=== PATIENT | female | born 1960 | race Caucasian/White ===

== ENCOUNTER 2019-12-17 08:39 | Day surgery (SDC) | payer OTHER, SELFPAY ==
[2019-12-15 13:51] VITALS: BMI 50.0
[2019-12-17] VITALS (14 sets, daily range): BP systolic 80–175; BP diastolic 38–73; PULSE 60–77; RESP 14–17; TEMP 35.6–36.7; O2SAT 94–100; BMI 50.0
--- NOTE | 2019-12-17 06:00 | DI.RAD.S_ITS ---
PROCEDURE: XR KNEE RT 1TO2V INDICATIONS: post op TECHNIQUE: 2 view(s) of the knee acquired. COMPARISON: [facility], [place], XR KNEE ARTHRITIC SERIES RT, 03/17/2019, 10:51. FINDINGS: Bones: Patient is status post knee joint arthroplasty. Hardware components are in expected positions. Visualized bony structures are intact. Soft tissues: Overlying postoperative changes are noted. Multiple surgical skin claudia are seen overlying the anterior margin of the midline knee. No unexpected radiopaque foreign bodies are evident. Areas of soft tissue edema and air are present. IMPRESSION: Expected postoperative changes related to a right total knee arthroplasty. Dictated by: Bipin Olivares M.D. on 12/17/2019 at 13:14 Approved by: Bipin Olivares M.D. on 12/17/2019 at 13:14
[2019-12-17] MEDS: PREGABALIN 75 MG CAPSULE PO (10:02)
[2019-12-17] MEDS: LACTATED RINGERS 1,000 ML 42 ML IV ×2 (10:15→12:53)
[2019-12-17] MEDS: MELOXICAM 7.5 MG TABLET 15 MG PO (10:17)
--- NOTE | 2019-12-17 10:35 | PM.PREOP ---
Pre-operative Note Interval Note History & Physical reviewed/Exam performed by Physician: Yes Changes to H&P: No
--- NOTE | 2019-12-17 10:36 | P.OP_ITS ---
Operative Date/Time/Diagnoses Date of procedure: 12/17/19 Time of procedure: 13:20 Pre-op diagnosis: Severe right knee osteoarthritis with significant loss of motion Post-op diagnosis: same Procedure & Clinicians Procedure: Right total knee arthroplasty Same procedure as scheduled: Yes Indications: The patient presents today for total knee arthroplasty after failure of conservative treatment. The nature of the procedure including the risks and benefits, alternatives, postoperative course and expected outcome were discussed and all questions answered. The patient does understand that it may be difficult for her to get full range of motion back considering her preoperative range of motion. Consent was obtained. Operative site confirmed and marked. Surgeon: Dallas Machuca Defense Analyst: Luis A Stubbs Anesthesia Type: Spinal and Local Operative Notes Findings: The patient had severe preoperative motion loss. Once under anesthesia of the knee moved just from about 25-80 degrees. A +2 cut was made on the distal femur initially. Approximately 11 mm was cut from the less affected lateral side of the tibia. The knee was still tight in both flexion extension and another 2 mm was removed. The knee balanced well once all the osteophytes were removed and routine medial releases performed. I did leave the knee with approximately 2-3 mm of laxity medially and laterally. I was co ncerned she would have difficulty regaining full motion of the knee was left too tight. She easily went into full extension without hyperextension. The knee flexed to at least 120? which was primarily limited by the soft tissue. The patella had severe concave wear. Once cut there is about 13 mm of remaining patella. There were some cysts within the bone that were debrided as well. A small patella was placed as far medial as possible to ensure good tracking. Patellar tracking was excellent with the trial and final components. Closure Type: primary Specimen(s): none sent Prosthetic devices, grafts, tissues, transplants, or devices: Dan and Nephew Laura BCS: 6 femoral component, 3 tibial component, 9 mm BCS polyethylene tray and 29 x 7.5 mm round patella Applied: implant(s) Estimated Blood Loss (mL): 10 Blood products transfused: none Tourniquet time (min): 75 Procedure in detail: The patient was taken to the operative suite and placed un edvin spinal anesthesia. The patient was given prophylactic antibiotics prior to surgery. The patient was also given tranexamic acid, 1 g, just prior to surgery for postoperative hemostasis. The lateral knee was prepped and the joint injected with 20 mL of 1% Lidocaine with epinephrine. The knee was then prepped and draped in usual sterile fashion. The leg was exsanguinated with an Esmarch dressing and the tourniquet raised to 300 torr. A 15 cm anterior incision was made. Next a medial trivector arthrotomy was made. The extensor mechanism was marked to ensure accurate repair. Initial exposing dissection was carried out medially and laterally. The knee was then flexed and the intramedullary femoral guide gabrielle placed. The distal femoral cut was made in 6? of valgus at the +2 position. The femoral size was measured and the appropriate cutting block was then placed and the anterior, posterior and chamfer cuts made. The intramedullary tibial alignment gabrielle was then placed. The guide was set to remove approximately 11 mm from the less affected lateral side. The proximal tibial cut was then made with an oscillating saw. All meniscus and bony debris was then removed. Posterior femoral osteophytes removed with a curved osteotome. Flexion extension gaps were checked. The knee was still tighter than desired both in flexion and extension. Another 2 mm was cut from the tibia. The knee was well balanced medial and laterally with just routine osteophyte removal and standard medial soft tissue releases. The soft tissues were then injected with a combination of 20 mL of half percent Marcaine with epinephrine and 20 mL of Exparel. The trial components were then placed. The knee was then extended and the patellar thickness was measured and a cut made removing approximately 7-8 mm of bone. The patella had severe concave where and was approximately 13 mm thick after resection. The patella was then sized and drilled. Some excess lateral bone was excised and the patellofemoral ligament released. The knee went into full extension and flexion at least 120?. There was excellent medial-lateral balance throughout motion. Patellar tracking was excellent. The trial components were removed and the knee was cleansed with Pulsavac irrigation and dried. The final components were cemented with high viscosity vacuum mixed bone cement with antibiotics. The joint was filled with a dilute Betadine solution. The knee was held in extension and the patellar clamped until the cement was adequately cured. The knee was then irrigated. The extensor mechanism was closed with 5 interrupted #1 Vicryl sutures and a running Quill suture at approximately 90 degrees of flexion. The joint was then injected with a combination of 1 g of tranexamic acid and 20 mL of quarter percent Marcaine with epinephrine. The subcutaneous tissue was closed with 2 0 Vicryl. The skin was closed with claudia and surgical adhesive. An madelin dressing and Raymond wrap were then applied. The patient tolerated the procedure well and was returned to recovery room in good condition. Complications: none Post-operative Condition: stable Disposition: PACU Plan for aftercare: [facility] protocol for total knee arthroplasty.
[2019-12-17] MEDS: CEFAZOLIN 2 GM/100 ML FROZ.PIGGY IV (11:04)
[2019-12-17] MEDS: TRANEXAMIC ACID 1,000 MG VIAL 1000 MG IV (11:33)
[2019-12-17] MEDS: LIDOCAINE 1% W/EPI 20 ML INJ (11:45)
--- NOTE | 2019-12-17 11:56 | SUR.OPER ---
Supine on padded OR bed. Pillow under head, arms secured on padded armboards <90 degree abduction. Safety belt across torso. Non-operative leg secured with tape over blanket over lower leg. Operative leg secured in DeMayo/Armani positioner. Foam padded brace at thigh of operative leg.
[2019-12-17] MEDS: CEFAZOLIN VIAL 1 GM in SODIUM CHLORIDE 0.9% 100 ML 200 ML IV (12:01)
[2019-12-17] MEDS: BUPIVACAINE 0.25% W/ EPI (PF) 20 ML, TRANEXAMIC ACID 1,000 MG, SODIUM CHLORIDE 0.9% 10 ML INJ (12:03)
[2019-12-17] MEDS: BUPIVACAINE 0.25% W/ EPI (PF) 40 ML, BUPIVACAINE LIPOSOME 266 MG, SODIUM CHLORIDE 0.9% ... INJ (12:05)
--- NOTE | 2019-12-17 15:31 | PC.NURSE ---
Recieved from pacu, no pain at this time. Cont pulse ox on and sats are 99-100% on ra. No nausea, had ice chips in pacu but nothing so far here. No void in pacu. No resp concerns. Family at bedside, first vss.
[2019-12-17] MEDS: IBUPROFEN 400 MG TABLET PO ×2 (16:59→21:35)
[2019-12-17] MEDS: ONDANSETRON 4 MG/2 ML INJ IV ×2 (16:59→21:35)
[2019-12-17] MEDS: ACETAMINOPHEN 325 MG TABLET 650 MG PO ×2 (16:59→21:35)
[2019-12-17] MEDS: LACTATED RINGERS 1,000 ML 125 ML IV (16:59)
[2019-12-17] MEDS: diphenhydrAMINE 50 MG/ML VIAL 25 MG IV (18:10)
[2019-12-17] MEDS: CEFAZOLIN VIAL 3 GM in SODIUM CHLORIDE 0.9% 100 ML 200 ML IV (20:16)
[2019-12-17] MEDS: ASPIRIN EC 81 MG TABLET PO (21:35)
[2019-12-18] MEDS: IBUPROFEN 400 MG TABLET PO ×3 (00:27→08:28)
[2019-12-18 00:30] VITALS: BP 119/70; PULSE 57; RESP 18; TEMP 36.9; O2SAT 95
[2019-12-18] MEDS: LACTATED RINGERS 1,000 ML 125 ML IV (02:17)
[2019-12-18] MEDS: CEFAZOLIN VIAL 3 GM in SODIUM CHLORIDE 0.9% 100 ML 200 ML IV (02:35)
[2019-12-18 04:00] VITALS: BP 115/73; PULSE 60; RESP 16; TEMP 36.4; O2SAT 98
[2019-12-18 05:25] LABS: Hematocrit 34.8 % (36-46); Hemoglobin 11.5 g/dL (12.0-16.0)
--- NOTE | 2019-12-18 06:41 | PC.NURSE ---
Requested to stop the IVF. States my hands feels swollen & I been get up to urinate frequently. IVF stopped & saline locked. Denies any nausea & pain level is @ 2-01/19. Will cont. POC & monitor.
--- NOTE | 2019-12-18 07:28 | PM.PN.1 ---
Subjective Subjective Date Patient Seen: 12/18/19 Time Patient Seen: 07:28 Interval history: Patient is POD# 1 s/p right TKA with Dr. Machuca. Pain has been mild and well controlled. She has not mobilized yet but has been up to the bedside commode without issue. Voiding appropriately. No nausea, vomiting, lightheadedness, or dizziness. Exam Vital Signs (past 8 hours): - 12/18/19 00:30 12/18/19 04:00 Temperature 98.4 F 97.6 F Pulse Rate 57 L 60 Respiratory Rate 18 16 Blood Pressure 119/70 115/73 Pulse Oximetry 95 98 Oxygen Delivery Method Room Air Narrative Exam Narrative: 59 year old female resting comfortably in bed, alert and oriented in no acute distress. CITLALI dressing is on and operational. Patient able to flex/extend the foot and ankle. Palpable pedal pulse with soft compressible calves. Objective Labs Result Diagrams: 12/18/19 05:00 Labs: Laboratory Results - last 24 hr 12/18/19 05:00 Hgb 11.5 L Hct 34.8 L Assessment & Plan Assessment & Plan narrative: Patient progressing well postoperatively. Patient should work with PT today. Will need to complete stair training prior to discharge. Continue present pain management, patient has scripts at home. Continue present DVT prophylaxis. Bowel regimen added. Discharge this afternoon if cleared by PT. Quality VTE Deep Vein Thrombosis/Pulmonary Embolism Present on Admission: No
[2019-12-18 08:00] VITALS: BP 134/76; PULSE 61; RESP 18; TEMP 36.2; O2SAT 97
--- NOTE | 2019-12-18 08:15 | PT.IIE ---
Current Diagnoses Unilateral primary osteoarthritis, right knee (12/17/19) Surgery Performed Operation Date: 12/17/19 10:45 Actual Procedures p Total Knee Arthroplasty(Right) - Dallas Machuca MD Surgical History (Last Updated 12/15/19 @ 14:18 by Antionette Luna RN) History of bladder surgery (Acute) Hx of sinus surgery (Acute) Hx of tonsillectomy (Acute) Medical History (Last Updated 12/15/19 @ 14:18 by Antionette Luna RN) Ear congestion (Acute) Easy bruisability (Acute) GERD (gastroesophageal reflux disease) (Acute) HTN (hypertension) (Acute) Osteoarthritis (Acute) Physical Therapy Inpatient Evaluation/Re-Eval M1 PT/OT-IP Prior Functional Status Start: 12/18/19 12:31 Freq: NEEDED Status: Active Protocol: Document 12/18/19 07:38 EG (Rec: 12/18/19 12:54 EG [email or web address]) Medical Review Prior Functional Status Medical History Reviewed Yes Mobility and Gait Independent, no AD Prior Functional Level (Other details) Independent, No AD Social History Household Members spouse Living Arrangements House Number of Stairs To Enter/Railing? 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 and so patient reports house has been modified for him in the past M2 PT-IP Current Condition Start: 12/18/19 12:31 Freq: NEEDED Status: Active Protocol: Document 12/18/19 07:38 EG (Rec: 12/18/19 12:54 EG [email or web address]) Physical Therapy Current Condition Current Condition Evaluation Date 12/18/19 Treatment Diagnosis Status Post R TKA Onset Date 12/17/2019 Weight Bearing Status Weight Bearing Status Weight Bear as Tolerated M3 PT-IP Subjective Start: 12/18/19 12:31 Freq: NEEDED Status: Active Protocol: Document 12/18/19 07:38 EG (Rec: 12/18/19 12:54 EG [email or web address]) Subjective Physical Therapy Visit Type Type Initial Evaluation Visit Start Time 07:38 Visit Stop Time 08:14 Total Visit Minutes 36 Notes Patient sleeping supine in bed upon arrival Number of SHOVELER Visits 0 Physical Therapy Visit Comments Patient Comments Patient responded with enthusiasm when PT arrived and was ready to get up. Patient mentioned she had to go to the bathroom. Patient reported a 0/10 pain in her knee. Patient Goals Patient would like to go home Therapy Pain Assessment Pain When Pain Assessed At Rest Pain Present Pain Present Denied Pain M4 PT-IP Mobility and Gait Start: 12/18/19 12:31 Freq: NEEDED Status: Active Protocol: Document 12/18/19 07:38 EG (Rec: 12/18/19 12:54 EG [email or web address]) PT-Bed Mobility Assessment Rolling Level of Assist Independent Supine to Sit Supine to Sit Independent Sit to Supine Sit to Supine Independent Scooting Scooting to Edge of Bed Independent PT-Transfer Assessment Sit to and From Stand Sit to and from Stand Standby Assistance Equipment Transfer Assistive Device Gait Belt,Front Wheeled Walker Orthotic/Prosthetic Devices or Brace: No Transfers Transfer Destination Bed,Bedside Commode Transfer Ability Level of Assist Standby Assistance Comments Mobility Comments Patient I in moving from supine <> sit with HOB elevated. Patient had gait belt on when sitting at EOB and required CGA to move from sitting to standing with FWW in front of patient. Patient ambulated to bed side commode to urinate and transfered from seated in commode to standing with CGA. Gait Assessment Gait Gait Assistance Required: Contact Guard Assist Distance (Feet) 500 Able to Maintain Weight Bearing Status Yes During Gait Assistive Devices Assistive Device Gait Belt,Front Wheeled Walker Orthotic/Prosthetic Devices or Brace: No Gait Deviations General Gait Pattern Decreased Stride Length, Decreased Feet Clearance, Flexed Trunk Factors Limiting Gait Function Factors Limiting Gait Function Decreased Activity Tolerance, Decreased Strength,Limited Range of Motion,Pain Comments Gait Comments Patient tends to keep R knee in extension with swing through during gait. Patient needs to place weight through FWW with gait but is not experiencing any pain at this moment. Patient has limited ROM due to extended period of time before surgery where ROM was limited due to pain. Patient has tendency to push FWW too far forward and was educated on keeping FWW close to COG during ambulation forward. Patient was also educated to heel strike with R leg during gait. Stair Climbing Assessment Evaluation Level of Assist On Stairs Contact Guard Assistance Devices Stair Climbing Assistive Devices Left Railing,Right Railing Technique/Endurance Stair Climbing Direction Ascend and Descend Stair Climbing Technique Step to Step Number of Steps Climbed 3 Query Text: Stair Climbing Set # Repetitions (reps) 2 Comments Stair Climbing Comments Patient was educated on up with the good, down with the bad and was able to maintain this form when going up and down stairs. Patient did use bilateral handrails when moving up and down and the stairs with a step to pattern. No LOB. PT-Balance Assessment Sitting Balance and Reactions Static Sitting Balance Ability Normal Dynamic Sitting Balance Ability Normal Standing Balance and Reactions Static Standing Balance Ability Normal Dynamic Standing Balance Ability Good M5 PT-IP Objective Assessments Start: 12/18/19 12:31 Freq: NEEDED Status: Active Protocol: Document 12/18/19 07:38 EG (Rec: 12/18/19 14:01 EG [email or web address]) Orientation Orientation/Cognition Level of Alertness Alert Gross Range of Motion Upper Extremity ROM Assessment Within Functional Limits Lower Extremity ROM Assessment Right Impaired Impairments R knee flexion decreased due to pain and swelling post op TKA. Strength Upper Extremity Strength Assessment Within Functional Limits Lower Extremity Strength Assessment Within Functional Limits Comments Strength Comments Patient able to maintain weight on FWW with arms and ambulate with full weight through LLE. Coordination Assessment Gross Coordination Gross Coordination WNL Sensation Assessment Sensation Gross Sensation WNL Muscle Tone Muscle Tone WNL Yes M6 PT-IP Treatment Start: 12/18/19 12:31 Freq: NEEDED Status: Active Protocol: Document 12/18/19 07:38 EG (Rec: 12/18/19 14:01 EG [email or web address]) Physical Therapy Treatment Education Education Provided Precautions,Weight Bearing Status,Post-Op Packet,Safety M7 PT-IP Assessment and Plan Start: 12/18/19 12:31 Freq: NEEDED Status: Active Protocol: Document 12/18/19 07:38 EG (Rec: 12/18/19 14:01 EG [email or web address]) PT Summary Assessment and Plan Potential Rehabilitation Potential Good Status of Condition at Evaluation Stable Summary Impairments Pain,ROM,Strength,Balance, Transfers,Gait,Activity Tolerance Progress Towards Goals Goals Met Assessment Summary Patient is a 59 year old female post-op R TKA. Patient was I at [facility] and and plans to return home with . Patient was independent with bed mobility and required CGA for transfers but was able to perform transfers safely and with stability. Patient is aware of safety precautions using FWW and was instructed on safe use of AD. Patient was able to ambulate 500 feet and is motivated to continue therapy when leaving the hospital. Patient is safe to return home with family and will continue OP PT once home. Goals Bed Mobility Goal Independent Transfer Goal Independent Gait Goal Independent Gait Distance 500 Days to Meet Goals 3 Frequency of Treatment Frequency Of Treatment Twice a Day Treatment Plan Physical Therapy Treatment Plan Transfer Training,Therapeutic Exercise,Balance Retraining, Post Op Education Other Recommendations and Next Treatment Patient discharged home Focus Discharge Recommendations PT Discharge Recommendations Home Other Discharge Recommendations Home with family care
[2019-12-18] MEDS: DOCUSATE 100 MG CAPSULE PO (08:21)
[2019-12-18] MEDS: PANTOPRAZOLE 20 MG TABLET PO (08:21)
[2019-12-18] MEDS: hydroCHLOROthiazide 25 MG TABLET PO (08:23)
[2019-12-18 08:24] VITALS: BP 134/76; PULSE 61
[2019-12-18] MEDS: LOSARTAN 50 MG TABLET 100 MG PO (08:24)
[2019-12-18] MEDS: ASPIRIN EC 81 MG TABLET PO (08:24)
[2019-12-18] MEDS: polyethylene glycoL 3350 17 GM POWD.PACK PO (08:29)
[2019-12-18] MEDS: ACETAMINOPHEN 325 MG TABLET 650 MG PO (08:29)
--- NOTE | 2019-12-18 10:22 | PC.NURSE ---
Discharge: Pt feels ready to d/c home. Seen by PT and given there instructions. Pain in control with tylenol and ibuprofen. Does know her block will wear off and she may have more pain in another day or 2. CITLALI information given and shown how to check for grn light, if orange or stops then call office for further instructions. Trouble shoot dressing. Vds w/out diff and diet tolerated with out problems. Reviewed d/c packet and instructions. Already has rx at home. Spouse is at bedside and present for instructions. Questions answered. Pt d/c home via auto w/spouse.
--- NOTE | 2019-12-18 11:18 | CM.IDA ---
Initial DCP Assessment Note: Pt is a 59 yo female, resident of [place]. Pt is POD#1 from rt knee surgery by Dr Machuca. PCP: Layton Duncan Payer: [employer] Pt discussed in multidisciplinary rounds this morning and no barriers to safe return home, once cleared by therapy team, likely today. Attempted assessment at bedside and pt had already gone home w/spouse to assist, cleared by PT w/ close outpt f/u. AURORA Mcpherson
== END 2019-12-18 10:20 | disposition home or self-care (01) ==
LOC: OR 08:43 → AC 08:44
PROVIDERS: PCP Family Medicine; Referring Provider Orthopaedic Surgery; Visit Provider Orthopaedic Surgery
PROC: 0SRC0JZ Replacement of Right Knee Joint with Synthetic Substitute, Open Approach (ICD-10-PCS; CPT 27447; principal; 2019-12-17 10:45)
DX: M17.11 Unilateral primary osteoarthritis, right knee (principal)
CPT/HCPCS: 27447; 36415; 73560; 85014; 85018; 97161; C1776; C9290; J0690; J1100; J1200; J2250; J2274; J2405; J2704; J3010